=== PATIENT | female | born 1980 | race Caucasian/White ===

== ENCOUNTER 2016-12-16 17:15 | Emergency (ER) | payer MEDICAID ==
[2016-05-27 13:24] VITALS: BMI 60.3
[~2016-12-16 17:15] MED LIST: BACTRIM DS TABL1 TAB PO; HYDROCODONE-APA1 TAB PO; PERCOCET 10/3251 TA1 PO; VIBRAMYCIN 100100 MG PO
[2016-12-16 17:58] LABS: BASOPHILS 0 % (0.0-2.0); EOSINOPHILS 1.9 % (0-7); HEMATOCRIT 38.7 % (36.0-48.0); HEMOGLOBIN 12.3 g/dL (12-16); IMMATURE GRANULOCYTES 0.1 % (0-5); MCH 25.6 pg (26.0-34.0); MCHC 31.8 g/dL (31.0-37.0); MCV 80.5 fL (80.0-100.0); MEAN PLATELET VOLUME 9.2 fL (7.4-10.4); MONOCYTES 5.7 % (2-11); NEUTROPHILS 64.3 % (40-80); PLATELET COUNT 211 10x3/uL (130-400); RBC 4.81 10x6/uL (4.00-5.40); RDW 14.9 % (11.5-14.5); WBC 6.7 10x3/uL (4.8-10.8)
[2016-12-16 18:48] LABS: HCG SERUM NEGATIVE (NEGATIVE)
[2016-12-16 19:06] LABS: APPEARANCE HAZY (CLEAR); BILIRUBIN NEGATIVE (NEGATIVE); COLOR YELLOW (YELLOW); GLUCOSE NEGATIVE (NEGATIVE); KETONE NEGATIVE (NEGATIVE); LEUKOCYTE ESTERASE 1+ (NEGATIVE); NITRITE NEGATIVE (NEGATIVE); PROTEIN TRACE mg/dL (NEGATIVE); SPECIFIC GRAVITY 1.025 (1.005-1.020); UROBILINOGEN NORMAL (NORMAL)
[2016-12-16 19:07] LABS: BACTERIA MODERATE /hpf (NONE SEEN); EPITHELIAL CELLS 0-5 /hpf (0-5); RED CELLS - URINE 0-5 /hpf (0-5); WHITE CELLS - URINE >50 /hpf (0-5)
== END 2016-12-16 22:16 | disposition home or self-care (01) ==
LOC: D.ER 17:15
PROVIDERS: Family Medicine
DX: R10.2 Pelvic and perineal pain (principal); N39.0 Urinary tract infection, site not specified

== ENCOUNTER 2017-08-04 23:52 | Emergency (ER) | payer MEDICAID ==
[2016-05-27 13:24] VITALS: BMI 60.3
[2017-08-05 00:42] LABS: HCG URINE NEGATIVE (NEGATIVE)
[2017-08-05 00:45] LABS: APPEARANCE CLOUDY (CLEAR); BILIRUBIN NEGATIVE (NEGATIVE); COLOR YELLOW (YELLOW); GLUCOSE NEGATIVE (NEGATIVE); KETONE NEGATIVE (NEGATIVE); NITRITE NEGATIVE (NEGATIVE); PROTEIN 1+ mg/dL (NEGATIVE); UROBILINOGEN NORMAL (NORMAL)
[2017-08-05 00:49] LABS: EPITHELIAL CELLS 0-5 /hpf (0-5); RED CELLS - URINE 0-5 /hpf (0-5)
[2017-08-05 00:50] LABS: BACTERIA MANY /hpf (NONE SEEN); CALCIUM OXALATE CRYSTALS 0-5 /hpf (NONE SEEN); MUCUS <1+ /lpf (NONE SEEN)
== END 2017-08-05 02:05 | disposition home or self-care (01) ==
LOC: D.ER 23:52
PROVIDERS: Family Medicine; Nurse Practitioner Family
DX: N39.0 Urinary tract infection, site not specified (principal); H05.011 Cellulitis of right orbit

== ENCOUNTER 2017-08-14 17:43 | Emergency (ER) | payer MEDICAID ==
[2016-05-27 13:24] VITALS: BMI 60.3
== END 2017-08-14 19:15 | disposition home or self-care (01) ==
LOC: D.ER 17:43
DX: H05.011 Cellulitis of right orbit (principal)

== ENCOUNTER 2017-08-16 14:38 | Emergency (ER) | payer BC ==
[2016-05-27 13:24] VITALS: BMI 60.3
[2017-08-16 16:04] LABS: BASOPHILS 0.1 % (0-2); EOSINOPHILS 0.6 % (0-7); HEMATOCRIT 41.1 % (36.0-48.0); HEMOGLOBIN 13.5 g/dL (12-16); IMMATURE GRANULOCYTES 0.2 % (0-5); LYMPHOCYTES 31.7 % (15-50); MCH 26.8 pg (26.0-34.0); MCHC 32.8 g/dL (31.0-37.0); MCV 81.5 fL (80.0-100.0); MEAN PLATELET VOLUME 9.3 fL (7.4-10.4); MONOCYTES 5.7 % (2-11); NEUTROPHILS 61.7 % (40-80); PLATELET COUNT 232 10x3/uL (130-400); RBC 5.04 10x6/uL (4.00-5.40); RDW 14.7 % (11.5-14.5); WBC 10.5 10x3/uL (4.8-10.8)
[2017-08-16 16:25] LABS: ALBUMIN 2.9 g/dL (3.4-5.0); ALKALINE PHOSPHATASE 58 U/L (46-116); ALT (SGPT) 23 U/L (10-68); BILIRUBIN - TOTAL 0.13 mg/dL (0.2-1.3); CALC OSMOLALITY 282 mosm/kg (275-300); CALCIUM 8.4 mg/dL (8.5-10.1); CARBON DIOXIDE 29.5 mmol/L (21.0-32.0); CHLORIDE - SERUM 107 mmol/L (98-107); CREATININE - SERUM 0.8 mg/dL (0.6-1.3); GLUCOSE 85 mg/dL (74-106); POTASSIUM - SERUM 3.2 mmol/L (3.5-5.1); PROTEIN - SERUM 6.7 g/dL (6.4-8.2); SODIUM 142 mmol/L (136-145); UREA NITROGEN 15 mg/dL (7-18); eGFR NON AFRICAN AMERICAN 85 mL/min (90-120)
== END 2017-08-16 18:45 | disposition home or self-care (01) ==
LOC: D.ER 14:38
PROVIDERS: Physician Assistant Medical
DX: L03.211 Cellulitis of face (principal)

== ENCOUNTER 2017-08-27 00:11 | Emergency (ER) | payer MEDICAID ==
[2016-05-27 13:24] VITALS: BMI 60.3
[2017-08-27 00:50] LABS: APPEARANCE HAZY (CLEAR); COLOR YELLOW (YELLOW)
[2017-08-27 00:51] LABS: BILIRUBIN NEGATIVE (NEGATIVE); GLUCOSE NEGATIVE (NEGATIVE); KETONE NEGATIVE (NEGATIVE); NITRITE NEGATIVE (NEGATIVE); PROTEIN NEGATIVE (NEGATIVE); SPECIFIC GRAVITY 1.015 (1.005-1.020); UROBILINOGEN NORMAL (NORMAL)
[2017-08-27 00:53] LABS: BACTERIA MODERATE /hpf (NONE SEEN); EPITHELIAL CELLS RARE /hpf (0-5); RED CELLS - URINE 0-5 /hpf (0-5); WHITE CELLS - URINE 25-50 /hpf (0-5)
== END 2017-08-27 01:18 | disposition home or self-care (01) ==
LOC: D.ER 00:11
PROVIDERS: Family Medicine
DX: B37.89 Other sites of candidiasis (principal); N39.0 Urinary tract infection, site not specified

== ENCOUNTER 2017-09-03 20:46 | Emergency (ER) | payer MEDICAID ==
[2016-05-27 13:24] VITALS: BMI 60.3
== END 2017-09-03 22:00 | disposition home or self-care (01) ==
LOC: D.ER 20:46
DX: H00.014 Hordeolum externum left upper eyelid (principal)

== ENCOUNTER 2017-10-06 17:27 | Emergency (ER) | payer MEDICAID ==
[2016-05-27 13:24] VITALS: BMI 60.3
== END 2017-10-06 20:09 | disposition home or self-care (01) ==
LOC: D.ER 17:27
DX: L03.111 Cellulitis of right axilla (principal)

== ENCOUNTER 2017-10-20 17:56 | Emergency (ER) | payer MEDICAID ==
[2016-05-27 13:24] VITALS: BMI 60.3
[2017-10-20 19:37] LABS: BASOPHILS 0.1 % (0-2); EOSINOPHILS 1.7 % (0-7); HEMATOCRIT 42.6 % (36.0-48.0); IMMATURE GRANULOCYTES 0.3 % (0-5); LYMPHOCYTES 28.9 % (15-50); MCH 26.7 pg (26.0-34.0); MCHC 32.9 g/dL (31.0-37.0); MCV 81.1 fL (80.0-100.0); MEAN PLATELET VOLUME 9.3 fL (7.4-10.4); MONOCYTES 4.1 % (2-11); NEUTROPHILS 64.9 % (40-80); PLATELET COUNT 227 10x3/uL (130-400); RBC 5.25 10x6/uL (4.00-5.40); RDW 13.4 % (11.5-14.5); WBC 6.9 10x3/uL (4.8-10.8)
[2017-10-20 19:49] LABS: INR 0.94 (0.85-1.17); PROTIME 12.2 SECONDS (11.6-15.0)
[2017-10-20 19:51] LABS: D-DIMER-QUANTITATIVE 0.63 ug/mLFEU (0.20-0.54)
[2017-10-20 19:59] LABS: ALBUMIN 3.5 g/dL (3.4-5.0); ALKALINE PHOSPHATASE 71 U/L (46-116); ALT (SGPT) 19 U/L (10-68); CALC OSMOLALITY 276 mosm/kg (275-300); CARBON DIOXIDE 29.5 mmol/L (21.0-32.0); CHLORIDE - SERUM 103 mmol/L (98-107); CREATININE - SERUM 0.8 mg/dL (0.6-1.3); GLUCOSE 90 mg/dL (74-106); POTASSIUM - SERUM 3.5 mmol/L (3.5-5.1); PROTEIN - SERUM 7.7 g/dL (6.4-8.2); SODIUM 139 mmol/L (136-145); UREA NITROGEN 11 mg/dL (7-18); eGFR NON AFRICAN AMERICAN 85 mL/min (90-120)
[2017-10-20 20:01] LABS: CREATINE KINASE 60 UL (21-215); MAGNESIUM - SERUM 1.9 mg/dL (1.8-2.4); PRO BNP 314 pg/mL (0-125); TROPONIN-I < 0.017 ng/mL (0.000-0.060)
== END 2017-10-20 23:01 | disposition home or self-care (01) ==
LOC: D.ER 17:56
PROVIDERS: Nurse Practitioner Family
DX: J20.9 Acute bronchitis, unspecified (principal); R07.89 Other chest pain

== ENCOUNTER 2017-10-21 18:18 | Emergency (ER) | payer MEDICAID | END 2017-10-22 01:50 | disposition home or self-care (01) | LOC: D.ER 18:18 | DX: K59.00 Constipation, unspecified (principal) ==

== ENCOUNTER 2017-10-29 22:38 | Emergency (ER) | payer MEDICAID ==
[2016-05-27 13:24] VITALS: BMI 60.3
[2017-10-29 23:38] LABS: BASOPHILS 0.1 % (0-2); EOSINOPHILS 1.9 % (0-7); HEMATOCRIT 41.5 % (36.0-48.0); HEMOGLOBIN 13.4 g/dL (12-16); IMMATURE GRANULOCYTES 0.2 % (0-5); LYMPHOCYTES 25.3 % (15-50); MCH 26.3 pg (26.0-34.0); MCHC 32.3 g/dL (31.0-37.0); MCV 81.5 fL (80.0-100.0); MEAN PLATELET VOLUME 9.4 fL (7.4-10.4); MONOCYTES 5.2 % (2-11); NEUTROPHILS 67.3 % (40-80); PLATELET COUNT 228 10x3/uL (130-400); RBC 5.09 10x6/uL (4.00-5.40); RDW 13.6 % (11.5-14.5); WBC 8.9 10x3/uL (4.8-10.8)
[2017-10-29 23:49] LABS: CALC OSMOLALITY 279 mosm/kg (275-300); CALCIUM 8.8 mg/dL (8.5-10.1); CARBON DIOXIDE 31.4 mmol/L (21.0-32.0); CHLORIDE - SERUM 106 mmol/L (98-107); CREATININE - SERUM 0.7 mg/dL (0.6-1.3); GLUCOSE 95 mg/dL (74-106); POTASSIUM - SERUM 3.9 mmol/L (3.5-5.1); SODIUM 141 mmol/L (136-145); UREA NITROGEN 10 mg/dL (7-18); eGFR NON AFRICAN AMERICAN > 90 mL/min (90-120)
[2017-10-30] LABS: APPEARANCE CLEAR (CLEAR); BILIRUBIN NEGATIVE (NEGATIVE); COLOR YELLOW (YELLOW); GLUCOSE NEGATIVE (NEGATIVE); KETONE NEGATIVE (NEGATIVE); NITRITE NEGATIVE (NEGATIVE); PROTEIN NEGATIVE (NEGATIVE); UROBILINOGEN NORMAL (NORMAL)
== END 2017-10-30 00:36 | disposition home or self-care (01) ==
LOC: D.ER 22:38
PROVIDERS: Emergency Medicine
DX: K58.1 Irritable bowel syndrome with constipation (principal)

== ENCOUNTER 2017-12-30 22:48 | Emergency (ER) | payer SELFPAY ==
[2016-05-27 13:24] VITALS: BMI 60.3
[2017-12-31 01:57] LABS: BASOPHILS 0.1 % (0-2); EOSINOPHILS 1.6 % (0-7); HEMOGLOBIN 13.1 g/dL (12-16); IMMATURE GRANULOCYTES 0.2 % (0-5); MCH 25.9 pg (26.0-34.0); MONOCYTES 3.9 % (2-11); NEUTROPHILS 73.2 % (40-80); PLATELET COUNT 238 10x3/uL (130-400); RBC 5.06 10x6/uL (4.00-5.40); RDW 14.3 % (11.5-14.5)
[2017-12-31 02:15] LABS: ALBUMIN 3.3 g/dL (3.4-5.0); ALKALINE PHOSPHATASE 68 U/L (46-116); ALT (SGPT) 26 U/L (10-68); CALC OSMOLALITY 274 mosm/kg (275-300); CALCIUM 8.9 mg/dL (8.5-10.1); CHLORIDE - SERUM 103 mmol/L (98-107); CREATININE - SERUM 0.8 mg/dL (0.6-1.3); GLUCOSE 99 mg/dL (74-106); POTASSIUM - SERUM 3.9 mmol/L (3.5-5.1); PROTEIN - SERUM 7.6 g/dL (6.4-8.2); SODIUM 138 mmol/L (136-145); UREA NITROGEN 10 mg/dL (7-18); eGFR NON AFRICAN AMERICAN 85 mL/min (90-120)
[2017-12-31 02:22] LABS: APPEARANCE CLEAR (CLEAR); BILIRUBIN NEGATIVE (NEGATIVE); COLOR YELLOW (YELLOW); GLUCOSE NEGATIVE (NEGATIVE); KETONE NEGATIVE (NEGATIVE); NITRITE NEGATIVE (NEGATIVE); PROTEIN NEGATIVE (NEGATIVE); UROBILINOGEN NORMAL (NORMAL)
[2017-12-31 03:13] LABS: C-REACTIVE PROTEIN 2.2 mg/dL (0.0-0.9); MAGNESIUM - SERUM 1.8 mg/dL (1.8-2.4)
[2017-12-31 04:01] LABS: ERYTHROCYTE SEDIMENTATION RATE 32 mm/hr (0-20)
== END 2017-12-31 04:33 | disposition home or self-care (01) ==
LOC: D.ER 22:48
PROVIDERS: Emergency Medicine
DX: M79.605 Pain in left leg (principal); L02.91 Cutaneous abscess, unspecified; R20.2 Paresthesia of skin; E66.01 Morbid (severe) obesity due to excess calories

== ENCOUNTER 2018-04-12 23:01 | Emergency (ER) | payer MEDICAID ==
[~2018-04-12] VITALS: Ht 170.2 cm; Wt 190.9 kg
[2018-04-12 23:31] VITALS: Ht 170.2 cm; Wt 190.9 kg
[2018-04-12] MEDS ORDERED: BUPRENORPHIN-N1 EACH SL (23:33)
[2018-04-13 00:23] LABS: BASOPHILS 0.1 % (0-2); EOSINOPHILS 2.3 % (0-7); HEMATOCRIT 40.1 % (36.0-48.0); IMMATURE GRANULOCYTES 0.3 % (0-5); LYMPHOCYTES 17.1 % (15-50); MCH 25.3 pg (26.0-34.0); MCHC 32.4 g/dL (31.0-37.0); MCV 78.2 fL (80.0-100.0); MEAN PLATELET VOLUME 8.7 fL (7.4-10.4); NEUTROPHILS 75.2 % (40-80); PLATELET COUNT 198 10x3/uL (130-400); RBC 5.13 10x6/uL (4.00-5.40); RDW 14.1 % (11.5-14.5)
[2018-04-13 00:29] LABS: APTT 38.5 SECONDS (22.8-39.4); INR 0.86 (0.85-1.17); PROTIME 11.3 SECONDS (11.6-15.0)
[2018-04-13 00:30] LABS: D-DIMER-QUANTITATIVE 0.69 ug/mLFEU (0.20-0.54)
[2018-04-13 00:33] LABS: HCG URINE NEGATIVE (NEGATIVE)
[2018-04-13 00:36] LABS: CALCIUM 8.7 mg/dL (8.5-10.1); CARBON DIOXIDE 33.6 mmol/L (21.0-32.0); CREATININE - SERUM 0.9 mg/dL (0.6-1.3); POTASSIUM - SERUM 3.6 mmol/L (3.5-5.1)
[2018-04-13 00:36] LABS: APPEARANCE HAZY (CLEAR); BILIRUBIN NEGATIVE (NEGATIVE); COLOR YELLOW (YELLOW); GLUCOSE NEGATIVE (NEGATIVE); KETONE NEGATIVE (NEGATIVE); NITRITE NEGATIVE (NEGATIVE); PROTEIN NEGATIVE (NEGATIVE); SPECIFIC GRAVITY 1.025 (1.005-1.020); UROBILINOGEN NORMAL (NORMAL)
[2018-04-13 00:39] LABS: BACTERIA MODERATE /hpf (NONE SEEN); EPITHELIAL CELLS 0-5 /hpf (0-5); HYALINE CAST OCC /lpf (NONE SEEN); MUCUS <1+ /lpf (NONE SEEN); RED CELLS - URINE 0-5 /hpf (0-5); WHITE CELLS - URINE 0-5 /hpf (0-5)
[2018-04-13] MEDS ORDERED: MACROBID100 MG PO (03:04)
[2018-04-13 03:57] VITALS: BP 166/97
== END 2018-04-13 03:58 | disposition home or self-care (01) ==
LOC: D.ER 23:01
PROVIDERS: Family Medicine
DX: N39.0 Urinary tract infection, site not specified (principal); R60.9 Edema, unspecified; M19.90 Unspecified osteoarthritis, unspecified site; I10 Essential (primary) hypertension